=== PATIENT | male | born 1960 | race Caucasian/White ===

== ENCOUNTER 2024-07-26 18:28 | Emergency (ER) | payer OTHER, SELFPAY ==
[2024-07-26 18:33] VITALS: BP 144/82; PULSE 104; RESP 15; TEMP 37.4; O2SAT 95
--- NOTE | 2024-07-26 18:48 | ED.GENADUL_ITS ---
Discharge Plan Disposition Patient Disposition: Home Condition: Good Discharge Details Clinical Impression: Prepatellar bursitis Primary Care Provider: Vicky Mahoney ED Provider: Rochelle Beebe Home Meds and New Rx's Prescriptions: New sulfamethoxazole-trimethoprim 800-160 mg tablet 2 tab PO BID Qty: 28 1RF No Action amoxicillin-pot clavulanate 875-125 mg tablet 1 tab PO Q12H acetaminophen [Tylenol] 325 mg tablet 325 mg PO Q6H PRN Discharge Instructions Additional Instructions: You will be called by Dr. Escudero's office for follow-up later this week. Please keep the compression on the knee for at least 48 hours and limit bending and moving of the knee for this time. If you see no improvements by then, please call the office at [phone]. After 48 hours you may replace the compression dressing or place a bandaid. You will be taking Bactrim DS, 2 tabs twice a day until instructed otherwise. HPI General Date/Time Provider Initiated Documentation: 07/26/24 18:36 . HPI Narrative: Rick is a 64year old male who presents to the emergency department today for evaluation of R knee pain/swelling/redness. He reports that he hit his knee on a piece of steel approx 4 weeks ago (no overlying skin tears/abrasions); says it felt sore for 2 weeks and then began swelling. He was evaluated at [facility], had a steroid injection that did not help. He did have the joint aspirated on Saturday and was started on Augmentin for antibiotics. He has been taking antibiotics every 12 hours as prescribed, but says that he has karen nued swelling and the pain is worse. Today he developed fever this afternoon and headache. He is able to bend the knee, but says he is not able to walk normally and the pain is interfering with his sleep. Denies associated URI symptoms such as congestion, sore throat, cough, nausea/vomiting, abdominal discomfort. Denies significant past medical history such as hypertension, diabetes, immunocompromise. No previous surgery to this joint. Physical exam remarkable for fluctuant swelling and erythema noted to the anterior to the patella of right knee. He does have full range of motion to kne e, though this does cause him discomfort. No swelling proximal or distal to the knee. No other obvious joint swelling. Overall Rick is well-appearing D/dx includes but is not limited to: Prepatellar bursitis, septic joint. Patient does not meet SIRS criteria, though does have tachycardia. He has been treated [id number] with ibuprofen and does continue to have elevated temperature at home. Independently reviewed the following tests: CBC, CMP, lactate reassuring. CRP and sed rate both elevated. I did review records from [facility] ED visit, patient had joint aspiration performed with approximately 5 cc of serosanguineous fluid extracted which was sent for culture and grew Staph aureus. ED physician was concerned at that time for septic joint, started patient on Augmentin with close return precautions. While in the emergency department, Rick received IV vancomycin after failed outpatient therapy/worsening condition while awaiting orthopedic consultation. Dr. Escudero at the bedside for further evaluation; aspiration was performed. He did call in a prescription for Bactrim and will have patient follow-up in office. Reviewed discharge instructions with patient, including symptomatic management, antibiotics, and red flags indicating need for return to emergency care Related Data Home Medications ?Medication ?Instructions ?Recorded ?Confirmed acetaminophen 325 mg tablet 325 mg PO Q6H PRN 07/26/24 07/26/24 (Tylenol) amoxicillin 875 mg-potassium 1 tab PO Q12H 07/26/24 07/26/24 clavulanate 125 mg tablet sulfamethoxazole 800 2 tab PO BID #28 tabs 07/26/24 mg-trimethoprim 160 mg tablet Previous Rx's ?Medication ?Instructions ?Recorded sulfamethoxazole 800 2 tab PO BID #28 tabs 07/26/24 mg-trimethoprim 160 mg tablet Allergies Allergy/AdvReac Type Severity Reaction Status Date / Time No Known Allergies Allergy Unverified 07/26/24 18:39 General Stated Complaint: Orthopedic QUANG: 3 Review of Systems Narrative: see HPI Exam Const General: cooperative, healthy appearing, comfortable and no acute distress Nutritional Appearance: average body habitus Orientation: alert and oriented x3 Resp Effort & Inspection: normal respiratory effort and able to speak in complete sentences Cardio Rate: tachycardic Rhythm: regular rhythm Skin General skin exam: no rashes or lesions noted Extrem Right lower extremity: full ROM, normal capillary refill and knee Details: swelling Location: of the pre-patellar area (With erythema and warmth); no abrasions, no lacerations, no ecchymosis, no penetrating wound and no deformity Left lower extremity: normal to inspection Course Vital Signs Vital signs: Vital Signs Temperature 37.4 C 07/26/24 18:33 Pulse 104 H 07/26/24 18:33 Respiratory Rate 15 07/26/24 18:33 Blood Pressure 144/82 H 07/26/24 18:33 Pulse Oximetry 95 07/26/24 18:33 Temperature 37.4 C 07/26/24 18:33 Temperature Source Oral 07/26/24 18:33 Pulse 104 H 07/26/24 18:33 Respiratory Rate 15 07/26/24 18:33 Blood Pressure 144/82 H 07/26/24 18:33 Blood Pressure Position Sitting 07/26/24 18:33 Pulse Oximetry 95 07/26/24 18:33 Oxygen Delivery Method Room Air 07/26/24 18:33 Oxygen Flow Rate 0 07/26/24 18:33 Medical Decision Making Quality:SDOH Health Related Social Needs: No Data to Display PFSH All Active Problems (Updated 07/26/24 @ 21:41 by Rochelle Sneed) Prepatellar bursitis (Acute) Social History Smoking risk assessment performed?: No Alcohol Intake: former Drug use: Never Substance use type: does not use
[2024-07-26 19:16] LABS: Lactate 1.5 mmol/L (0.6-1.4)
[2024-07-26 19:17] LABS: Abs Immature Grans 0.03 10^3/uL (0.0-0.06); Absolute Basophil Count 0.04 10^3/uL (0.0-0.2); Absolute Eosinophil Count 0.14 10^3/uL (0.0-0.7); Absolute Lymphocyte Count 1.54 10^3/uL (1.2-3.4); Absolute Monocyte Count 0.59 10^3/uL (0.1-0.8); Absolute Neutrophil Count 7.32 10^3/uL (1.2-6.7); Basophils % 0.4 %; Eosinophils % 1.4 %; HCT 45.8 % (40.0-50.0); HGB 15.7 g/dL (13.5-17.5); Immature Grans % 0.3 %; Lymphocytes % 15.9 %; MCH 30.2 pg (27.0-33.0); MCHC 34.3 % (32.0-36.0); MCV 88 fL (80-95); MPV 8.9 fL (8.0-11.0); Monocytes % 6.1 %; Neutrophils % 75.9 %; Platelet Count 355 10^3/uL (130-400); RDW 12.6 % (11.8-14.1); RDW-SD 40.8 fL; WBC 9.66 10^3/uL (4.4-10.8)
[2024-07-26 19:21] LABS: ESR 44 mm/hr (0-20)
[2024-07-26 19:34] LABS: ALT 58 U/L (16-63); AST 33 U/L (15-37); Albumin 3.5 g/dL (3.4-5.0); Alkaline Phosphatase 105 U/L (46-116); Anion Gap 6.3 mmol/L (3-11); BUN 10 mg/dL (7-18); Bilirubin, Total 0.48 mg/dL (0.2-1.0); CO2 29.7 mmol/L (21.0-32.0); CREATININE 0.9 mg/dL (0.70-1.30); Calcium 9.7 mg/dL (8.5-10.1); Chloride 101 mmol/L (98-107); Estimated GFR 95.97 (mL/min/1.73m2); Glucose 114 mg/dL (74-106); Potassium 4.1 mmol/L (3.5-5.1); Sodium 137 mmol/L (136-145); Total Protein 8.5 g/dL (6.4-8.2)
[2024-07-26 22:04] VITALS: BP 156/99; PULSE 97; RESP 16; TEMP 37; O2SAT 97
[2024-07-26 22:41] LABS: Source Synovial
[2024-07-26 22:42] LABS: Clarity Clear; Mononuclear Cells 87 %; Nucleated Cells 222 uL (0); Polynuclear Cells 13 %
--- NOTE | 2024-07-26 23:12 | W.ORTHOCONSU ---
Date of service: 07/26/24 Time of Service: 20:30 History of Present Illness History of Present Illness Chief Complaint: Right Knee Swelling and Pain Narrative: Rick is an otherwise healthy 64-year-old who presents today for right knee pain and swelling. This all started about 6-7 weeks ago when he hit the anteromedial aspect the knee on a piece of steel. He had immediate pain at the time of the finger subside. However, few weeks later he noted increasing pain and swelling about the anterior aspect of the knee which was painful with kneeling and with direct pressure. He is seen by his primary care physician, Dr. De La Torre, on 04 July. At that time there was mention of a concern for prepatellar bursitis. He reports doing an aspiration of 20 cc of clear fluid with an injection of triamcinolone. Sukh feels that at that point the injection provided very minimal benefit and soon thereafter slowly worse. He continued to feel worse with worsening pain and increasing swelling along with some redness about the knee. He started having difficulty with sleep. He was seen by Dr. De La Torre on July 25 for repeat evaluation. This office note which was reviewed makes no mention of prepatellar bursitis unlike the first office note and unfortunately mentions a knee effusion. At that time he reports aspirating this effusion with sanguinous output which was sent to the lab. This was marked to be a knee effusion, from the joint. He was started on Augmentin. He has continued to feel worse since this time including subjective fevers, chills, and disrupted sleep. He has pain mostly with direct pressure. He is able to ambulate. He is able to bend the knee although forcefully flexing the knee causes pain anteriorly. His aspiration then returned gram-positive cocci, Staph aureus. Sensitivities are pending. He presented to [facility] emergency department due to the worsening symptoms. He reports having a fever but does not have 1 here in the emergency department. He denies any chest pain or shortness of breath. He denies any other major medical issues or any immunocompromisation. Consults Consult date: 07/26/24 Requesting physician: Rohcelle Sneed Consult Reason Right Knee Infection Assessment and Plan Assessment and plan (1) Septic prepatellar bursitis of right knee: Status: Acute Assessment and plan: Rick is a 64-year-old male who has septic prepatellar bursitis about the right knee. Unfortunately, in reading the notes of Dr. De La Torre, I am not certain what was done and where things were injected although my suspicion is that all of the drainage and all the aspiration and all the injection was performed within the prepatellar bursal region. I did aspirate the knee today from a slightly more proximal, superolateral approach, to avoid any entry into the infected bursa. I was able to obtain clear joint fluid which was sent to the lab for analysis and showed no signs of infection with a cell count of only 222 cells, predominantly mononuclear cells. Therefore, he does not have any infected joint, no septic arthritis. The initial Gram stain from the prepatellar bursa does show gram-positive cocci which is in keeping from the previous aspiration performed on July 25. While he does not have risk factors for it I have to assume that there is a risk of MRSA given the lack of progress with the other medication. However, this was a dense septic bursitis which is likely been developing over the past few weeks which may have made the antibiotics less effective. Given the significant mount of decompression of the prepatellar bursa I do think we can attempt to treat this with outpatient oral antibiotics. There is good evidence that surgical decompression is not necessary unless is unable be treated and that most cases can be treated nonsurgically. I do worry that he may have some chronic drainage from this bursa given the aspiration and expression which was performed which may need secondary suture placement or potential smaller surgical intervention. I recommend that we cover for MRSA and start Bactrim for coverage of potential MRSA but still adequate strep and staph coverage. We will do the higher dosage of 2 double strength tablets twice daily. I would expected to be a few days before we start seeing any significant improvements. While he does have a notably elevated CRP and a mildly elevated ESR, he does not have any other systemic findings which necessitate the need for inpatient admission. He did receive a single dose of vancomycin here in the emergency department which hopefully will start the treatment process. We will follow-up with him by phone over the next day or 2 to make sure is not worsening. If he were, then he will be admitted directly to the hospital for IV antibiotics and likely surgical decompression. Otherwise, things continue to improve I will see him later in the week for wound check and evaluation. Review of Systems All systems reviewed & are unremarkable except as noted in HPI and below PFSH All Active Problems (Updated 07/27/24 @ 07:42 by Louie Escudero MD) Septic prepatellar bursitis of right knee (Acute) Social History Smoking risk assessment performed?: No Alcohol Intake: former Drug use: Never Substance use type: does not use Exam Narrative Exam Narrative: Ray is a sitting up in the hospital stretcher. No acute distress. Alert and orient x 3. Appears slightly uncomfortable. Nondiaphoretic. Evaluation of the right lower extremity shows a obvious prominence to the prepatellar region. There is some skin changes about the right knee which he reports are from using too much Biofreeze. There is some hyperemia about the knee with maybe some cellulitic type pattern over the anterior knee. He has pain palpation of the prepatellar space where there is a very boggy and fluctuant prepatellar bursa. There is no obvious break in the skin. There is no palpable suprapatellar effusion. There is no palpable effusion adjacent to the patellar ligament. I am able to passively range the knee from about 5 to 75 degrees with no pain. He is able to actively move the knee as well and only complains of pain anteriorly as he goes actively flex the knee. Knee is stable to varus and valgus stress. Results Last Vital Signs Temp 37.0 C 07/26/24 22:04 Pulse 97 H 07/26/24 22:04 Resp 16 07/26/24 22:04 BP 156/99 H 07/26/24 22:04 Pulse Ox 97 07/26/24 22:04 Labs 07/26/24 19:03 07/26/24 19:03 Labs: Laboratory Results - last 24 hr 07/26/24 07/26/24 19:03 21:05 WBC 9.66 RBC 5.20 Hgb 15.7 Hct 45.8 MCV 88 MCH 30.2 MCHC 34.3 RDW 12.6 Plt Count 355 MPV 8.9 Immature Gran % 0.3 Neutrophils % 75.9 Lymphocytes % 15.9 Monocytes % 6.1 Eosinophils % 1.4 Basophils % 0.4 Nucleated RBC % 0.0 Absolute Neutrophils 7.32 H Absolute Lymphocytes 1.54 Absolute Monocytes 0.59 Absolute Eosinophils 0.14 Absolute Basophils 0.04 ESR 44 H VBG Lactate 1.5 H Sodium 137 Potassium 4.1 Chloride 101 Carbon Dioxide 29.7 Anion Gap 6.3 BUN 10 Creatinine 0.9 Est GFR (CKD-EPI 2020) 95.97 Glucose 114 H Calcium 9.7 Total Bilirubin 0.48 AST 33 ALT 58 Alkaline Phosphatase 105 C-Reactive Protein 7.20 H Total Protein 8.5 H Albumin 3.5 Fluid Source Synovial Fluid Color Yellow Fluid Clarity Clear Fluid WBC 222 Fld Polynuclear WBCs % 13 Fluid Mononuclear Cell 87 Imaging Imaging Studies: X-ray from [facility] is unable to reviewed. I did find the report in the system which shows mild tricompartmental disease. Procedures Bursa Procedures Site of procedure: prepatellar bursa (Right knee) Antisepsis used: Chlorhexidine Local anesthetic used: Lidocaine 1% Amount of anesthesia used (ml): 10 Fluid obtained (ml): 5 Fluid type: cloudy and bloody Patient tolerated procedure: well Complications: none Additional comments: An aspiration of the prepatellar bursa was performed from a slightly lateral positioning into the bursa. I was able to obtain thickened, cloudy bloody fluid about 5 mL. Once the needle was withdrawn there was an expression of some fluid and some clotted purulent material. With some pressure against the prepatellar bursa small chunks and clots of purulent and sanguinous material was able to be expressed. This continued with direct pressure. Therefore, I reprepped this area of the knee with ChloraPrep and Betadine. I used an 11 blade to extend this needle exit site to approximate 3 to 4 mm in length. I then continued to express abundant amount of clotted purulence from within the bursa including significant amount of sanguinous fluid. This was continued until felt like majority was expressed. The knee was dressed with a pressure type dressing of gauze, ABD, and Neymar wrap. Joint Aspiration/Injection Joint Asp./Inject. 1: Time out performed: Yes Side of body: right Joint aspirated: knee Ultrasound guidance: No Skin prep: Chlorhexidine Needle size used: 22G Fluid obtained: clear Total fluid obtained (ml): 10 Patient tolerated procedure: well Complications: none
== END 2024-07-26 22:09 | disposition home or self-care (01) ==
PROVIDERS: Student in an Organized Health Care Education/Training Program; Emergency Provider Nurse Practitioner Family; PCP Internal Medicine
DX: M71.161 Other infective bursitis, right knee (principal)
CPT/HCPCS: 20610; 80053; 85652; 87040; 87077; 96365; 96366; 99284; 83605; 85025; 86140; 87070; 87186; 87205; 89051; J2003; J3370